=== PATIENT | male | born 1990 | race Caucasian/White ===

== ENCOUNTER 2017-09-09 16:26 | Emergency (ER) | payer OTHER ==
--- NOTE | 2017-09-09 16:49 | CPEKG ---
Heart Rate: 52 RR Interval: 1154 P-R Interval: 168 QRSD Interval: 90 QT Interval: 412 QTC Interval: 384 P [place]: 62 QRS [place]: 78 T Wave [place]: 66 EKG Severity - NORMAL ECG - EKG Impression: SINUS RHYTHM EKG Impression: ST ELEV, PROBABLE NORMAL EARLY REPOL PATTERN Electronically Signed By: Imtiaz Holbrook 09-Sep-2017 18:33:18
--- NOTE | 2017-09-09 16:54 | EDPHY ---
H & P Stated Complaint: CP X 2 YEARS Time Seen by Provider: 09/09/17 16:54 HPI/ROS: HPI: This is a 26-year-old male who presents with Chief Complaint:CP X 2 YEARS Location: Left anterior and lateral chest Quality: Tightness Duration: 2 hours ago Signs and Symptoms: No shortness of breath, no diaphoresis, no nausea, no vomiting, no lower extremity edema, no radiation of pain, no fever, no chills Timing: Sudden, lasted 15 minutes, resolved on own without intervention Severity: 04/07 Context: Patient was at the orthopedic office today receiving as intra- articular injection in his right hip for labral discomfort; approximately 15-20 minutes after the procedure he started to experience left anterior and lateral, nonradiating, chest pressure, that lasted approximately 15 minutes and self resolved on its own. Mom became concerned as intermittently during exercise patient has complained overtime of chest wall tightness bilaterally extending into his flanks over the last 2 years. He did travel via plane to [place] this weekend. He has a history of tension headaches that can cause some neck discomfort as well as left arm tingling. Modifying Factors: None Comment: ROS: see HPI Constitutional: No fever, no chills, no weight loss Eyes: No blurred vision Respiratory: No shortness of breath, no cough Cardiovascular: No chest pain Gastrointestinal: No nausea, no vomiting, no diarrhea Genitourinary: No dysuria Extremities: No myalgias Neurologic: No weakness, no numbness Skin: No rashes Hematologic: No bruising, no bleeding MEDICAL/SURGICAL/SOCIAL HISTORY: Medical history: Asthma. Does not take any regular medications. Surgical history: Denies Social history: Strong social support. Used to be a swimmer. CONSTITUTIONAL: Thin, tall white male, well appearing, awake and alert, no obvious distress HEENT: Atraumatic and normocephalic, PERRL, EOMI. Tympanic membranes clear. Oropharynx clear, no exudate and moist pink mucosa. Airway patent. No lymphadenopathy. No meningismus. Cardiovascular: Normal S1/S2, regular rate, regular rhythm, without murmur rub or gallop. PULMONARY/CHEST: Symmetrical and nontender. Clear to auscultation bilaterally. Good air movement. No accessory muscle usage. ABDOMEN: Soft, nondistended, nontender, no rebound, no guarding, no peritoneal signs, no masses or organomegaly. No CVAT. EXTREMITIES: 2/2 pulses, no deformities, no clubbing, no cyanosis or edema. No calf tenderness. No palpable cords. Negative Homans sign. NEUROLOGICAL: no focal neuro deficits. GCS 15. SKIN: Warm and dry, no erythema. no rash. Good capillary refill. Source: Patient Exam Limitations: No limitations - Personal History Current Tetanus Diphtheria and Acellular Pertussis (TDAP): Yes Tetanus Vaccine Date: LESS THAN 10 YEARS - Medical/Surgical History Hx Asthma: Yes Hx Chronic Respiratory Disease: No Hx Diabetes: No Hx Cardiac Disease: No Hx Renal Disease: No Hx Cirrhosis: No Hx Alcoholism: No Hx HIV/AIDS: No Hx Splenectomy or Spleen Trauma: No Other PMH: ASTHMA - Social History Smoking Status: Never smoked Constitutional: Initial Vital Signs Temperature (C) 36.5 C 09/09/17 16:34 Heart Rate 58 L 09/09/17 16:34 Respiratory Rate 14 09/09/17 16:34 Blood Pressure 130/69 H 09/09/17 16:34 O2 Sat (%) 98 09/09/17 16:34 O2 Delivery Mode Room Air Allergies/Adverse Reactions: No Known Allergies Allergy (Unverified 09/09/17 16:36) Home Medications: Medication Instructions Recorded NK [No Known Home Meds] 09/09/17 Medical Decision Making - Diagnostics EKG Interpretation: 12 lead EKG: Indication: chest pressure Rhythm: Normal sinus rhythm, rate 52 beats per minute [place]: Normal Intervals: Normal QRS: Normal ST segments: Normal INTERPRETATION: Repolarization noted The 12 lead EKG was interpreted by myself along with attending. Imaging Results: Imaging Impressions Chest X-Ray 09/09/17 17:13 Impression: No acute pulmonary disease. ED Course/Re-evaluation: EKG, labs, chest x-ray ordered DORIS risk score is low. 1745: Chest x-ray reviewed via PACs; no cardiomegaly/opacity/effusion/ pneumothorax Labs reviewed and no signs of pulmonary embolism/anemia/acute coronary syndrome/ CHF/arrhythmia The patient is asymptomatic. Differential Diagnosis: Chest pain including but not limited to myocardial ischemia, pulmonary embolus, chest wall pain, pleural inflammation, musculoskeletal cause, anxiety and pulmonary infectious causes. - Data Points Laboratory Results: Laboratory Results 09/09/17 17:30 09/09/17 17:30 09/09/17 09/09/17 09/09/17 17:30 17:30 17:30 WBC 4.66 10^3/uL 10^3/uL (3.80-9.50) RBC 4.69 10^6/uL 10^6/uL (4.40-6.38) Hgb 15.5 g/dL g/dL (13.7-17.5) Hct 44.1 % % (40.0-51.0) MCV 94.0 fL fL (81.5-99.8) MCH 33.0 pg pg (27.9-34.1) MCHC 35.1 g/dL g/dL (32.4-36.7) RDW 11.6 % % (11.5-15.2) Plt Count 160 10^3/uL 10^3/uL (150-400) MPV 10.3 fL fL (8.7-11.7) Neut % (Auto) 60.5 % % (39.3-74.2) Lymph % (Auto) 32.6 % % (15.0-45.0) [place] % (Auto) 5.2 % % (4.5-13.0) Eos % (Auto) 1.3 % % (0.6-7.6) Baso % (Auto) 0.2 % L % (0.3-1.7) Nucleat RBC Rel Count 0.0 % % (0.0-0.2) Absolute Neuts (auto) 2.82 10^3/uL 10^3/uL (1.70-6.50) Absolute Lymphs (auto) 1.52 10^3/uL 10^3/uL (1.00-3.00) Absolute Monos (auto) 0.24 10^3/uL L 10^3/uL (0.30-0.80) Absolute Eos (auto) 0.06 10^3/uL 10^3/uL (0.03-0.40) Absolute Basos (auto) 0.01 10^3/uL L 10^3/uL (0.02-0.10) Absolute Nucleated RBC 0.00 10^3/uL 10^3/uL (0-0.01) Immature Gran % 0.2 % % (0.0-1.1) Immature Gran # 0.01 10^3/uL 10^3/uL (0.00-0.10) D-Dimer < 0.27 ug/mLFEU ug/mLFEU (0.00-0.50) Sodium 140 mEq/L mEq/L (134-144) Potassium 3.5 mEq/L mEq/L (3.5-5.2) Chloride 101 mEq/L mEq/L (97-110) Carbon Dioxide 28 mEq/l mEq/l (22-31) Anion Gap 11 mEq/L mEq/L (8-16) BUN 13 mg/dL mg/dL (7-23) Creatinine 0.9 mg/dL mg/dL (0.7-1.3) Estimated GFR > 60 Glucose 89 mg/dL mg/dL (70-100) Calcium 9.2 mg/dL mg/dL (8.5-10.4) Troponin I < 0.012 ng/mL ng/mL (0.000-0.034) NT-Pro-B Natriuret Pep 28 pg/mL pg/mL (0-125) Departure - Departure Disposition: Home, Routine, Self-Care Clinical Impression: Left-sided chest wall pain, Procedure causing abnormal patient reaction, or later complication Condition: Good Instructions: Chest Wall Pain (ED) Additional Instructions: To take your laboratory studies and images do not indicate any cardiac or lung etiology for your discomfort. It appears he may have had a reaction from the procedure as well as chest wall muscular strain. Please follow up with Orthopedics as directed per them. Referrals: Clemente Mcgarry MD [Medical Doctor] - As per Instructions
[2017-09-09 17:42] LABS: % IMMATURE GRANULYOCYTES 0.2 % (0.0-1.1); ABSOLUTE IMMATURE GRANULOCYTES 0.01 10^3/uL (0.00-0.10); ADD DIFF? NO; ADD MORPH? NO; ADD SCAN? NO; ATYPICAL LYMPHOCYTE FLAG 10 (0-99); FRAGMENT RBC FLAG 0 (0-99); HEMATOCRIT 44.1 % (40.0-51.0); HEMOGLOBIN 15.5 g/dL (13.7-17.5); LEFT SHIFT FLG 0 (0-99); LIPEMIA HEMOLYSIS FLAG 90 (0-99); MEAN CELL HEMOGLOBIN CONCENTR. 35.1 g/dL (32.4-36.7); MEAN PLATELET VOLUME 10.3 fL (8.7-11.7); PLATELET CLUMPS FLAG 0 (0-99); PLATELET COUNT 160 10^3/uL (150-400); RED BLOOD CELL COUNT 4.69 10^6/uL (4.40-6.38); RED CELL DISTRIBUTION WIDTH 11.6 % (11.5-15.2)
[2017-09-09 17:52] LABS: ANION GAP 11 mEq/L (8-16); CALCIUM 9.2 mg/dL (8.5-10.4); CARBON DIOXIDE 28 mEq/l (22-31); CHLORIDE 101 mEq/L (97-110); CREATININE 0.9 mg/dL (0.7-1.3); GLOMERULAR FILTRATION RATE > 60; GLUCOSE 89 mg/dL (70-100); POTASSIUM 3.5 mEq/L (3.5-5.2); SODIUM 140 mEq/L (134-144)
[2017-09-09 18:02] LABS: TROPONIN I < 0.012 ng/mL (0.000-0.034)
[2017-09-09 18:03] VITALS: BP 112/71; PULSE 56; RESP 12; TEMP 98.2; O2SAT 95
== END 2017-09-09 19:03 | disposition home or self-care (01) ==
LOC: EDUNIT#
DX: T80.89XA Other complications following infusion, transfusion and therapeutic injection, initial encounter (principal); J45.909 Unspecified asthma, uncomplicated; Y82.8 Other medical devices associated with adverse incidents

== ENCOUNTER 2017-11-05 09:03 | Day surgery (SDC) | payer OTHER ==
--- NOTE | 2017-11-03 10:44 | PDGENHP ---
History and Physical - Chief Complaint Right Hip Pain - History of Present Illness 1. Bilateral~Femoroacetabular impingement (DARIUS) mixed type, with~resultant labral tear; RIGHT SIDE SYMPTOMATIC HISTORY OF PRESENT ILLNESS: Jenniferis a 26 y.o.~very ~active male~who I have had the pleasure to consult on today. I have enjoyed meeting him. He~lives in [place]. ~Jenniferworks as an health analytics consultant. ~He~is single; he~has no~children. ~Jenniferenjoys basketball, swimming, running, cycling and snowboarding. He is here today for a second opinion, having been evaluated by Dr. Mcgarry previously. Pietro's right~hip pain~started 8 months ago, with no~recalled trauma or injury , and with no~previous complaints. Jenniferdoes not have~a known history of hip dysplasia. Presentation today is of lateral right~hip pain. ~The hip does not~wake him~at night and does not~click and catch on him. Sitting can be uncomfortable~for him. Jenniferdoes~report suffering from lower back pain episodes. Has been diagnosed with DDD L4-L5; L5-S1 by MRI Jenniferhas~participated in physical therapy and has~tried other conservative measures including diagnostic hip injections with Dr. Sweet with immediate relief (100%)~and dry needling. He~has not~received sufficient symptomatic improvement. Jenniferhas~utilized medication for pain management, including NSAID and OTC acetaminophen. Jenniferhas used medication since the pain began Jenniferdenies issues with the left~hip. ~ Jenniferunderstands that he~has a hip and pelvis problem which should be researched and wishes to get a better understanding of his~hip status, followed by an establishment of a treatment strategy, hoping heXiaowould be able to get back to his~well being active life. History: Past medical history: ~ None which is relevant Relevant familial history: HTN father's side Past surgical history: None Jenniferhas never received general anesthesia. I have reviewed, verified and agree with the past medical, surgical, family and social history. Current Medications:~has a current medication list which includes the following prescription(s): acetaminophen. ALLERGIES:~has no allergies on file. Objective: Physical Examination: Jenniferis 6~feet 2~inches tall and weighs 150~Lbs. Pietro~is AAO x3; he~is well-nourished, in NAD. Skin is warm and dry. ~Breathing is non-labored. ~CV with RRR by pulse. Abdomen is soft, NTND. Currently, he~walks with a abnormal antalgic favoring left side~gait. Trendelenburg sign is negative~and proprioception is normal, both~side. He~presents with mild~signs of joint laxity. Beightons Score: 3 Lower spine examination is negative~for sciatic or femoral nerve irritation with negative~SLR &~femoral stretch tests. Range of motion of the spine is normal~for flexion, extension, and rotations, with no~associated pain. Strength, Sensation and pulses are normal - bilaterally Ankles and knees exams are normal~and no~mal-alignment is evident. He~has no leg length discrepancy. Thigh circumference is symmetric~with no evidence for muscle atrophy~on both~ side. Hip ROM (degrees): FL ER At 90~hip FL IR At 90~hip FL AB AD EX IR Neutral hip ER Neutral hip R 110 50 45 45 5 10 50-55 40 L 115 45 35 50 10 10 50-55 30 Specific hip and pelvis tests: Quadrant HESHAM Roll Add. Longus R Negative +++ Negative Negative L Negative ++ Negative Negative Glut. Med ITB Pos. Imp R Negative 5/5 strength +++ 5/5 strength Negative L Negative 5/5 strength +++ 5/5 strength Negative Squeeze test measured normal Bony Symphysis pubis is pain free~to touch while concentric activity of the rectus abdominis, does not~produce pain at its insertion. Ilio Psos specific tests are negative for pain during cycling for both hips~and remarkable for no snap HF has no pain both hips. Lateral/posterior capsule tenderness on right side Greater trochanteric burse is pain free~on both hips. Piriformis tests: FAIR is negative, with no~local signs of neuritis related to sciatic nerve. SIJs examination is produces pain on left side~with normal~HESHAM in relation and local tenderness. Hamstrings tests are negative~functional contraction and negative~tendinopathy both hips. On a daily basis, the following percentages reflect Pietro's overall total pain : Deep hip: 100% Imaging: Radiology studies which I have personally reviewed, analyzed and measured are below: XR: AP of the hip and pelvis: Performed in a good~technique Coccyx to pubic symphysis distance 1~cm. 0~degrees [place] Lines are preserved. Minimal~Pathological signs are seen in the Symphysis Pubis. Minimal~Pathological signs are seen at the Ischial tuberosity. ~ Specific measurements show: NSA~ LCE Sourcil~Angle Sharp's angle Lat. Cam Lat. Pincer C.Over~sign Head~Coverage % ATDmm R N 33 0 42 + - 12-12:30 N N L N 32 0 41 + - 12-12:30 N N Pos. wall sign ISS NAD ~~Dysplasia Comments R Negative Negative 14.7~mm Negative L Negative Negative 17~mm Negative Sclerosis Sup. Lat. OA Cysts Joint Space-WBZ Joint Space-Medial R Negative Negative Negative 4.3~mm 5.2~mm L Negative Negative Negative 4.6~mm 5.1~mm X Table lateral: Anterior cam lesion is seen~on both hips. Alpha Angle: ~ Right 51~dergrees Left 51~degrees MRI shows: no bone edema, good cartilage coverage, torn diminutive~labrum Impression and plan: Pietro~is a 26 y.o.~active male~suffering from symptomatic right~hip pain due to Right~Femoroacetabular impingement (DARIUS) Cam type, with~resultant labral tear ~causing significant disability to him~and altering his~sport and life activities. Physical examination, imaging, and his~story correspond with the diagnosis mentioned above. I explained that femoroacetabular impingement (ADRIUS) arises due to a bony or soft tissue conflict between the femur (ball) and acetabulum (socket) caused by an abnormality in the shape of the hip joint. Over time, repetitive impingement can result in damage to the labrum and adjacent surface cartilage within the socket, ultimately giving rise to progressive osteoarthritis of the hip. I explained that although a labral tear can be a source of pain, it is rarely the root of the problem and typically occurs secondary to an underlying abnormality in the shape and mechanics of the hip joint. ~ I reviewed conservative treatment options for DARIUS including activity modification to avoid positions of impingement, physical therapy, non-steroidal anti-inflammatory medications, and various injections (corticosteroid and PRP) aimed at reducing inflammation in the hip joint or/and preventing dynamic impingement. PRP injections may promote healing and reduce symptoms in certain cases but it will not repair chronically damaged tissue. Although these measures may help to buy time and reduce current level of symptoms, they are not a definitive solution to the problem given the underlying abnormality in the shape of the hip joint. Patients who have failed conservative management and continue to experience symptoms are candidates for hip arthroscopy, a minimally invasive surgery that can definitively address the underlying problem. Hip arthroscopy typically includes treating the labrum with either repair or reconstruction of the torn labrum; as well as addressing the underlying abnormalities by restoring the normal shape to the hip joint. ~If the cartilage is damaged a Microfracture surgical procedure may also be necessary to help stimulate the growth of fibrocartilage. ~If a patient requires a labral reconstruction or a Microfracture, the initial rehabilitation from the surgery may take longer, but the fci results are typically favorable. I reviewed the technical aspects of hip arthroscopy including risks, benefits, and expected course of recovery. Pietro~understands that hip arthroscopy is a minimally invasive outpatient procedure carried out through small incisions on the outer aspect of the hip joint. During surgery, the labral tear will be identified and either repaired or reconstructed~using bone anchors and suture material. Additionally, any excessive bone will be removed with a high-speed cami to reshape the hip joint and restore normal anatomy. Risks include infection, bleeding, injury to nearby nerves or vessels, stiffness, persistent pain, instability, venous thromboembolic disease, and traction related complications including temporary foot numbness. Rarely, revision surgery may be required to address these problems. Overall recovery takes approximately 4~ 8~months depending on the extent of damage and degree of repair. In the event that the labral tissue quality is inadequate for successful repair and healing, Pietro~understands that a labral reconstruction will be performed. This procedure entails placing a cadaver tissue graft within the hip joint and stabilizing it with bone anchors to build a new labrum. The overall recovery time for labral reconstruction is similar to that of labral repair, although the surgical procedure takes longer to perform. Pietro~will review the info presented. In order to obtain more detailed information regarding the alignment, orientation, and shape of the bony hip and pelvis I will order a CT scan to be performed. The results of the CT scan, including femoral torsion and acetabular version measured values and 3D images, will aid me in deciding on the best treatment strategy and surgical pre-planning. Pietro~will contact us if he~wishes to pursue further treatment in the future. Jenniferis happy with this plan. I have also supplied him~with handouts, outlining the expected surgical treatment and rehab involved. I wish~Jenniferall the best, ~~ Kenneth Saini, PAC History Information - Allergies/Home Medication List Allergies/Adverse Reactions: No Known Allergies Allergy (Verified 10/11/17 16:45) Home Medications: Cortisone 10/11/17 [Last Taken Unknown] I have personally reviewed and updated: medical history - Social History Smoking Status: Never smoked Review of Systems Review of Systems: Physical Exam Physical Exam:
[2017-11-05] MEDS ORDERED: PREGABALIN 150 MG CAP PO ONE (09:16)
[2017-11-05] MEDS ORDERED: ACETAMINOPHEN 500 MG TAB PO ONE (09:16)
[2017-11-05] MEDS ORDERED: ceFAZolin 2 GM/SWFI 2 GM/20 ML SYR IVP ONE (09:16)
[2017-11-05] MEDS ORDERED: LIDOCAINE 1% 2 ML INJ ID PRN (09:17)
[2017-11-05] MEDS ORDERED: LR 1,000 ML IV ONE (09:17)
[2017-11-05] MEDS ORDERED: BUPIVACAINE 0.25% 30 ML SDV ONE (09:51)
[2017-11-05] MEDS ORDERED: EPINEPHrine 30 MG/30 ML MDV (0.1 MG/0.1 ML) ONE (09:52)
[2017-11-05] MEDS ORDERED: MIDAZOLAM 2 MG/2 ML VIAL IVP ONE (10:51)
--- NOTE | 2017-11-05 10:52 | PDANEPAE ---
ANE Past Medical History - Cardiovascular History Hx Hypertension: No Hx Arrhythmias: No Hx Chest Pain: No Hx Coronary Artery / Peripheral Vascular Disease: No Hx CHF / Valvular Disease: No Hx Palpitations: No Cardiovascular History Comment: see above - Pulmonary History Hx COPD: No Hx Asthma/Reactive Airway Disease: Yes Hx Recent Upper Respiratory Infection: No Hx Oxygen in Use at Home: No Hx Sleep Apnea: No Sleep Apnea Screening Result - Last Documented: Negative Pulmonary History Comment: minor asthma-does not need inhaler. - Neurologic History Hx Cerebrovascular Accident: No Hx Seizures: No Hx Dementia: No - Endocrine History Hx Diabetes: No Hypothyroid: No Hyperthyroid: No Obesity: no - Renal History Hx Renal Disorders: No - Liver History Hx Hepatic Disorders: No - Neurological & Psychiatric Hx Hx Neurological and Psychiatric Disorders: No - Cancer History Hx Cancer: No - Congenital Disorder History Hx Congenital Disorders: No - GI History Hx Gastrointestinal Disorders: Yes Gastrointestinal History Comment: ~2012 had gas build-up,GERD returning from [place]- EGD and colonoscopy did not diagnose but digestive issues have improved. - Other Health History Other Health History: R labral tear,R hip pain - Chronic Pain History Chronic Pain: Yes (R hip) - Surgical History Prior Surgeries: NONE ANE Review of Systems Review of Systems: - Exercise capacity METS (RN): 5 METS ANE Patient History - Allergies Allergies/Adverse Reactions: No Known Allergies Allergy (Verified 10/11/17 16:45) - Home Medications Home Medications: Cortisone 10/11/17 [Last Taken Unknown] - NPO status NPO Since - Liquids (Date): 11/05/17 NPO Since - Liquids (Time): 12:00 NPO Since - Solids (Date): 11/04/17 NPO Since - Solids (Time): 21:00 - Smoking Hx Smoking Status: Never smoked ANE Labs/Vital Signs - Vital Signs Blood Pressure: 119/69 Heart Rate: 83 Respiratory Rate: 18 O2 Sat (%): 96 Height: 187.96 cm Weight: 68.039 kg ANE Physical Exam - Airway Neck exam: FROM Mallampati Score: Class 1 Mouth exam: normal dental/mouth exam - Pulmonary Pulmonary: no respiratory distress - Cardiovascular Cardiovascular: regular rate and rhythym - ASA Status ASA Status: II ANE Anesthesia Plan Anesthesia Plan: general endotracheal anesthesia
[2017-11-05] MEDS ORDERED: MIDAZOLAM 2 MG/2 ML VIAL ONE (10:57)
[2017-11-05] MEDS ORDERED: PROPOFOL/EMULSION 500 MG/50 ML BOTTLE IV ONE (11:01)
[2017-11-05] MEDS ORDERED: fentaNYL 250 MCG/5 ML INJ ONE (11:01)
[2017-11-05] MEDS ORDERED: epHEDrine SULFATE 10 MG/ML SYR ONE (11:44)
[2017-11-05] MEDS ORDERED: DEXAMETHASONE 4 MG/ML VIAL ONE (13:30)
[2017-11-05] MEDS ORDERED: ROCURONIUM 100 MG/10 ML VIAL ONE (13:30)
[2017-11-05] MEDS ORDERED: ROCURONIUM 50 MG/5 ML VIAL ONE (13:30)
[2017-11-05] MEDS ORDERED: ONDANSETRON 4 MG/2 ML VIAL ONE ×2 (13:30)
[2017-11-05] MEDS ORDERED: KETOROLAC 30 MG/1 ML SDV ONE (16:10)
[2017-11-05] MEDS ORDERED: fentaNYL 100 MCG/2 ML INJ ONE (16:38)
[2017-11-05] MEDS ORDERED: NALOXONE HCL 0.4 MG/ML INJ IVP PRN (17:19)
[2017-11-05] MEDS ORDERED: OXYCODONE/APAP 5/325 TAB ONE (17:25)
[2017-11-05] MEDS ORDERED: fentaNYL 100 MCG/2 ML INJ IVP ONE (17:30)
[2017-11-05] MEDS ORDERED: OXYCODONE/APAP 5/325 TAB PO ONE (17:45)
[2017-11-05] MEDS ORDERED: fentaNYL 100 MCG/2 ML INJ IVP PRN (18:00)
[2017-11-05 18:30] VITALS: PULSE 62; RESP 18; TEMP 97.9
[2017-11-05 18:56] VITALS: BP 112/58; O2SAT 98
== END 2017-11-05 18:58 | disposition home or self-care (01) ==
LOC: FSGY 09:03
PROVIDERS: ATTEND Orthopaedic Surgery Sports Medicine
PROC: 0QQ64ZZ Repair Right Upper Femur, Percutaneous Endoscopic Approach (ICD-10-PCS; principal; 2017-11-05 10:30)
PROC: 0SQ94ZZ Repair Right Hip Joint, Percutaneous Endoscopic Approach (ICD-10-PCS; principal; 2017-11-05 10:30)
DX: M25.851 Other specified joint disorders, right hip (principal); S73.199A Other sprain of unspecified hip, initial encounter; S73.191A Other sprain of right hip, initial encounter
CPT/HCPCS: C1713; J0171; J0690; J1100; J1885; J2250; J2405; J2704; J3010